=== PATIENT | female | born 1960 | race American Indian/Alaskan Native ===

== ENCOUNTER 2016-04-30 10:04 | Outpatient (CLI) | payer OTHER ==
--- NOTE | 2016-04-30 10:56 | XRay Report ---
Left hip 2 views: History: Left hip pain. Findings: There is narrowing noted of the hip joint. Sclerotic articular surfaces with degenerative changes. No fracture. No soft tissue calcification. Impression: Degenerative changes left hip.
--- NOTE | 2016-04-30 10:58 | XRay Report ---
LUMBAR SPINE RADIOGRAPHS: INDICATION: Lumbar pain. COMPARISON: None similar at this institution. FINDINGS: AP and lateral lumbar spine radiographs demonstrate slight levocurvature, possibly positional versus scoliosis. Mild lower thoracic and lumbar degenerative spurring. Disc heights appear grossly preserved. Lower lumbar facet arthropathy. Left hemipelvic calcifications. Intact SI joints. Nonobstructive bowel gas pattern. CONCLUSION: No acute lumbar radiographic abnormality with spinal degenerative changes noted, as described. Thank you for the opportunity to participate in this patient's care.
== END 2016-04-30 10:05 | disposition home or self-care (01) ==
LOC: XRAY 10:04
PROVIDERS: ATTEND Internal Medicine
DX: M16.12 Unilateral primary osteoarthritis, left hip (principal); M17.12 Unilateral primary osteoarthritis, left knee; I10 Essential (primary) hypertension
CPT/HCPCS: 72100